=== PATIENT | female | born 1970 | race Caucasian/White ===

== ENCOUNTER 2024-09-07 10:02 | Outpatient (CLI) | payer OTHER ==
[2024-09-07 10:35] LABS: #Basophils 0.05 10x3/uL (0.0-0.2); #Eosinophils 0.25 10x3/uL (0.0-0.5); #Neutrophils 4.77 10x3/uL (1.5-8.4); %Basophils 0.6 % (0.0-2.0); %Eosinophils 3.2 % (0.0-6.0); %Lymphocytes 26.8 % (18.0-47.0); %Monocytes 8.8 % (0.0-10.0); %Neutrophils 60.2 % (40.0-75.0); Hematocrit 43.3 % (34.9-44.5); Hemoglobin 13.9 g/dL (12.0-15.5); Mean Corpuscular HGB CONC 32.1 g/dL (32.0-36.0); Mean Corpuscular Hemoglobin 27.9 pg (27.0-33.0); Mean Corpuscular Volume 86.9 fL (81.6-98.3); Mean Platelet Volume 8.7 fL (7.4-10.4); Platelet Count 326 10x3/uL (150-450); RBC Distribution Width 15.6 % (11.5-14.5); Red Blood Cell (RBC) Count 4.98 10x6/uL (3.90-5.03); White Blood Cell (WBC) Count 7.9 10x3/uL (3.5-10.5)
[2024-09-07 10:56] LABS: Anion Gap 15 mmol/L (10-20); BUN (Urea Nitrogen) 10 mg/dL (9.8-20.1); Calc. Creatinine Clearance 0 mL/min (70-130); Calcium 9.6 mg/dL (7.8-10.44); Carbon Dioxide 27 mmol/L (22-29); Chloride 102 mmol/L (98-107); Estimated GFR 99; Glucose 92 mg/dL (70-105); Potassium 3.8 mmol/L (3.5-5.1); Sodium 140 mmol/L (136-145)
== END 2024-09-07 10:03 | disposition home or self-care (01) ==
LOC: CSHLAB 10:02
PROVIDERS: ATTEND Specialist
DX: Z01.812 Encounter for preprocedural laboratory examination (principal); R92.8 Other abnormal and inconclusive findings on diagnostic imaging of breast
CPT/HCPCS: 80048; 85025

== ENCOUNTER 2024-09-13 07:13 | Day surgery (SDC) | payer OTHER ==
[2024-09-07 10:21] VITALS: BMI 33.3
[2024-09-13] MEDS ORDERED: Acetaminophen 500 MG TAB ONE (07:26)
[2024-09-13] MEDS ORDERED: Ketorolac Tromethamine 30 MG (1 mL) VIAL ONE (07:26)
[2024-09-13] MEDS ORDERED: Midazolam HCl 2 mg/2 ml Vial ONE ×2 (09:05→09:12)
[2024-09-13] MEDS ORDERED: Lidocaine 2% MPF 10 ML AMP (For Epidural Use) ONE (09:06)
[2024-09-13] MEDS ORDERED: Bupivacaine/Epinephrine 0.25% 30 ML VIAL ONE (09:07)
[2024-09-13] MEDS ORDERED: fentaNYL 50 mcg/mL 1 mL Vial ONE ×2 (09:12→09:34)
[2024-09-13] MEDS ORDERED: Ondansetron PF 4 MG/2 ML Vial ONE (09:12)
[2024-09-13] MEDS ORDERED: Dexamethasone 20 MG/5 ML VIAL ONE (09:12)
[2024-09-13] MEDS ORDERED: PROPOFOL 20 ML ONE (09:12)
[2024-09-13] MEDS ORDERED: CEFAZOLIN 2 GM VIAL ONE (09:19)
== END 2024-09-13 11:45 | disposition home or self-care (01) ==
LOC: CSHSDC 07:13
PROVIDERS: ATTEND Specialist
PROC: 0HB5XZX Excision of Chest Skin, External Approach, Diagnostic (ICD-10-PCS; principal; 2024-09-13)
DX: N63.10 Unspecified lump in the right breast, unspecified quadrant (principal); R92.8 Other abnormal and inconclusive findings on diagnostic imaging of breast; C50.512 Malignant neoplasm of lower-outer quadrant of left female breast; F41.9 Anxiety disorder, unspecified; I10 Essential (primary) hypertension; F32.A Depression, unspecified; Z79.890 Hormone replacement therapy; Z98.890 Other specified postprocedural states; Z79.899 Other long term (current) drug therapy; Z88.5 Allergy status to narcotic agent; Z17.0 Estrogen receptor positive status [ER+]; Z91.041 Radiographic dye allergy status
CPT/HCPCS: 19281; 76098; 88307; A6258; J1100; J1885; J2250; J2405; J2704; J3010